=== PATIENT | male | born 1970 | race African-American/Black ===

== ENCOUNTER 2017-12-12 00:12 | Emergency (ER) | payer MEDICAID, OTHER, SELFPAY ==
[2017-12-12] MEDS ORDERED: HYDROcodone/Acetaminophen 10/325 mg Tablet ONE (00:23)
[2017-12-12] MEDS ORDERED: Ibuprofen 800 MG TAB ONE (00:24)
[2017-12-12] MEDS ORDERED: Cyclobenzaprine 10 MG TAB ONE (01:00)
--- NOTE | 2017-12-12 07:28 | RAD ---
LUMBAR SPINE 3 VIEWS: DATE: 12/12/17. FINDINGS: No fracture, disk space narrowing, or significant bony anomaly was seen. All vertebrae appear intact . The SI joints appear normal. Should pain persist, then an MRI to check any neural impingement and also look for any bone marrow edema could be useful. IMPRESSION: No acute finding. POS: HOME
== END 2017-12-12 01:15 | disposition home or self-care (01) ==
LOC: BURERS 00:12
DX: S39.92XA Unspecified injury of lower back, initial encounter (principal); W18.30XA Fall on same level, unspecified, initial encounter
CPT/HCPCS: 72100

== ENCOUNTER 2017-12-19 00:01 | Emergency (ER) | payer SELFPAY ==
[2017-12-19] MEDS ORDERED: Ibuprofen 800 MG TAB ONE (00:16)
[2017-12-19] MEDS ORDERED: HYDROcodone/Acetaminophen 10/325 mg Tablet ONE (00:16)
[2017-12-19] MEDS ORDERED: Ondansetron ODT 4 MG TAB ONE (00:18)
== END 2017-12-19 00:35 | disposition home or self-care (01) ==
LOC: BURERS 00:01
DX: M25.562 Pain in left knee (principal); M25.561 Pain in right knee; M19.90 Unspecified osteoarthritis, unspecified site; G89.29 Other chronic pain
CPT/HCPCS: 99283; Q0162

== ENCOUNTER 2018-09-07 16:39 | Emergency (ER) | payer SELFPAY | END 2018-09-07 17:48 | disposition home or self-care (01) | LOC: BURERS 16:39 | DX: J06.9 Acute upper respiratory infection, unspecified (principal); F17.210 Nicotine dependence, cigarettes, uncomplicated | CPT/HCPCS: 99283 ==

== ENCOUNTER 2018-09-14 11:32 | Emergency (ER) | payer SELFPAY ==
[2018-09-14] MEDS ORDERED: Dexamethasone 4 MG TAB ONE (11:56)
== END 2018-09-14 11:58 | disposition home or self-care (01) ==
LOC: BURERS 11:32
DX: H92.01 Otalgia, right ear (principal); J06.9 Acute upper respiratory infection, unspecified; F17.210 Nicotine dependence, cigarettes, uncomplicated
CPT/HCPCS: 99282; J8540

== ENCOUNTER 2019-02-12 20:47 | Emergency (ER) | payer SELFPAY ==
[2019-02-12] MEDS ORDERED: HYDROcodone/Acetaminophen 10/325 mg Tablet ONE (21:34)
[2019-02-12] MEDS ORDERED: Sulfameth/Trimethoprim DS 800-160mg TAB ONE (21:34)
== END 2019-02-12 22:00 | disposition home or self-care (01) ==
LOC: BURERS 20:47
DX: L03.116 Cellulitis of left lower limb (principal); F17.210 Nicotine dependence, cigarettes, uncomplicated
CPT/HCPCS: 99283

== ENCOUNTER 2019-07-19 23:17 | Emergency (ER) | payer SELFPAY ==
[2019-07-19] MEDS ORDERED: HYDROcodone/Acetaminophen 10/325 mg Tablet ONE (23:48)
== END 2019-07-20 00:03 | disposition home or self-care (01) ==
LOC: BURERS 23:17
DX: G89.18 Other acute postprocedural pain (principal); R10.33 Periumbilical pain; F17.210 Nicotine dependence, cigarettes, uncomplicated
CPT/HCPCS: 99283

== ENCOUNTER 2022-05-01 03:20 | Emergency (ER) | payer OTHER ==
[2022-05-01] MEDS ORDERED: Dicyclomine 20 MG TAB ONE (03:51)
[2022-05-01] MEDS ORDERED: Ondansetron ODT 4 MG TAB ONE (03:51)
== END 2022-05-01 03:54 | disposition home or self-care (01) ==
LOC: BURERS 03:20
DX: K52.9 Noninfective gastroenteritis and colitis, unspecified (principal); F17.210 Nicotine dependence, cigarettes, uncomplicated; Z79.899 Other long term (current) drug therapy; Z79.01 Long term (current) use of anticoagulants
CPT/HCPCS: 99283; Q0162